=== PATIENT | female | born 1955 | race Caucasian/White ===

== ENCOUNTER → 2017-01-18 | Outpatient (CLI) | payer SELFPAY | END | disposition disaster alternative care site (69) | LOC: GRAD 09:39 | DX: R91.8 Other nonspecific abnormal finding of lung field (principal) ==

== ENCOUNTER → 2017-01-23 | Outpatient (CLI) | payer SELFPAY | END | disposition disaster alternative care site (69) | LOC: GKIC 09:48 | DX: C34.82 Malignant neoplasm of overlapping sites of left bronchus and lung (principal); C34.90 Malignant neoplasm of unspecified part of unspecified bronchus or lung; C78.7 Secondary malignant neoplasm of liver and intrahepatic bile duct; C79.51 Secondary malignant neoplasm of bone; R91.8 Other nonspecific abnormal finding of lung field; R59.0 Localized enlarged lymph nodes; M84.48XD Pathological fracture, other site, subsequent encounter for fracture with routine healing | CPT/HCPCS: A9552 ==

== ENCOUNTER 2017-02-13 13:03 | Emergency (ER) | payer SELFPAY ==
--- NOTE | ~2017-02-13 | ER ---
PATIENT'S NAME: SULMA ESTEVEZ [facility] AGE: 61 Y [address] ROOM: [place] [address] LOCATION: ED ADMIT DATE: 02/13/2017 ER/Outpatient Report DISCHARGE DATE: 02/13/2017 FAMILY PHYSICIAN: Lexii Mercer MD ATTENDING PHYSICIAN: Vickie Simeon Time of arrival: 1303 hours. Time seen: 1303 hours. IDENTIFICATION: A 61-year-old female. CHIEF COMPLAINT: Shortness of breath. HISTORY OF PRESENT ILLNESS: The patient is a 61-year-old female, who was transported from the [facility] where she was receiving radiation therapy to a metastatic lesion in her sacrum. She became short of breath 20 minutes prior to arrival. She has had increasing shortness of breath and then today she had some chest pain in her midsternal, mid lower sternal, and into the left. The patient has no history of coronary artery disease. 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 She has a large sacral lesion and it is getting radiation therapy to that and when that is completed after 10 treatments they will consider that a T11 lesion. ALLERGIES: NO KNOWN DRUG ALLERGIES. CURRENT MEDICATIONS: 1. Mobic 7.5 mg daily. 2. Spencer 5/325 daily. 3. Prilosec 20 mg daily. 4. Docusate 100 mg daily. 5. Tramadol 50 mg two q.i.d. p.r.n. MEDICAL PROBLEMS: 1. Non-small cell carcinoma of the lung with metastasis to bone and liver. 2. Hypertension. 3. COPD. 4. Depression. PRIOR SURGERIES: 1. Hysterectomy. PATIENT'S NAME: SULMA ESTEVEZ [facility] AGE: 61 Y [address] ROOM: [place] [address] LOCATION: ED ADMIT DATE: 02/13/2017 ER/Outpatient Report DISCHARGE DATE: 02/13/2017 FAMILY PHYSICIAN: Lexii Mercer MD ATTENDING PHYSICIAN: Vickie Simeon 2. Hemangioma excision as a child. 3. Bronchoscopy on 01/04/2017 with biopsy. 4. Hysterectomy. 5. Mammogram in 2013. 6. Colonoscopy in 2012. 7. Pap in 2014. SOCIAL HISTORY: The patient was living in [place]. Currently living in [place] with her mother. Tobacco use, 2 packs per day up until this was diagnosed since the age of 19. History of marijuana use in the past and history of alcohol use none currently. FAMILY HISTORY: Father secondary to pancreatic cancer. Mother is living. Sister is living. Two brothers, one with diabetes. Maternal aunt had a history of cancer. REVIEW OF SYSTEMS: All systems were reviewed and negative other than what is noted in the HPI. Specifically, the patient does have a history of depression but currently depression is stable and no suicidal ideation. PHYSICAL EXAMINATION: VITAL SIGNS: Blood pressure 149/72, weight 66.8 kg. Pulse 96, respirations 18, temperature 97.6, and saturations 100%. GENERAL: A 61-year-old female in no acute distress. HEENT: Head: Normocephalic and atraumatic. Ears: TMs translucent both ears. Nose: Mucosa pink, no lesions. Mouth: No lesions. Pharynx benign. NECK: Supple. No lymphadenopathy. LUNGS: Diminished on the left side. No rhonchi, wheezes, or rales. HEART: Regular rate and rhythm. ABDOMEN: Soft, nondistended, and nontender. SKIN: [place], warm, and dry. No lesions or rashes noted. EXTREMITIES: No lower extremity edema. CHEST: She has tenderness to the left side of her chest, which reproduces her pain. LABORATORY DATA: Hemoglobin 11.8, hematocrit 35.6, platelets 248, white count 5.3. Differential is normal. INR 0.96. Troponin I less than 0.040. CPK 29, CK-MB less than 0.5. Sodium 129 and sodium was 131 on 02/09, potassium 4.0, chloride 91, CO2 of 27, BUN 8, creatinine 0.5, blood sugar 71 albumin low at 2.9. Magnesium 1.8. Two-hour cardiac enzymes; CPK 25 and CK-MB less than 0.5. Troponin I less than 0.040. EKG at 1508 hours showed normal sinus PATIENT'S NAME: SULMA ESTEVEZ [facility] AGE: 61 Y [address] ROOM: [place] [address] LOCATION: [facility] ADMIT DATE: 02/13/2017 ER/Outpatient Report DISCHARGE DATE: 02/13/2017 FAMILY PHYSICIAN: Lexii Mercer MD ATTENDING PHYSICIAN: Vickie Simeon rhythm at 97 beats per minute. No acute ST elevation or depression. EKG at 1317 hours normal sinus rhythm at 96 beats per minute. No acute ST elevation or depression. Two-view chest x-ray,, left suprahilar mass. No other acute findings noted on chest x-ray. PE protocol CT: No CT findings of PE and large left hilar and suprahilar mass with invasion into the adjacent mediastinum, additional small pulmonary nodules in both lungs, which could reflect additional neoplastic foci, extensive neoplastic bone involvement at the thorax, low-attenuation liver lesion consistent with neoplastic liver involvement and disseminated changes in the lung parenchyma scarring and fibrosis, predominantly at the lung bases. IMPRESSION: 1. Shortness of breath. No evidence of pulmonary embolism. No pneumonia. O2 sats have been stable throughout her stay here in the emergency room and she is feeling a little bit better at this time. 2. Chest pain and chest wall pain. Serial EKG and enzymes are negative. No history of coronary artery disease. 3. Non-small cell lung cancer. 4. Bony metastasis undergoing radiation therapy. The patient received 324 mg aspirin on arrival, Zofran for nausea 4 mg, and morphine 2 mg IV for pain. Her pain improved from a 6 to 3. She will be discharged home to continue her current medications. She has Ultram for pain and follow up with Dr. Brooks in 1 to 4 days. Keep her appointment with radiation therapy tomorrow. VICKIE SIMEON MD CAR/modl /[id number] d: 02/14/17 0757 t: 02/14/17 1029, OUTPATIENT REPORT
[2017-02-13 13:38] LABS: BASOPHIL % 0.2 %; EOSINOPHIL % 0.6 %; HEMATOCRIT 35.6 % (33.0-46.0); HEMOGLOBIN 11.8 g/dL (10.0-15.0); IMMATURE GRANULOCYTE % 0.4 %; LYMPHOCYTE # 0.8 K/uL (0.8-4.0); MCH 31.4 pg (27.0-34.0); MCHC 33.1 gm/dL (32.0-36.5); MCV 94.7 fl (83.0-98.0); MONOCYTE # 0.7 K/uL (0.0-1.0); MONOCYTE % 13.9 %; MPV 9.2 fl (9.4-12.4); NEUTROPHIL # (ANC) 3.7 K/uL (1.8-7.8); NEUTROPHIL % 69.9 %; NRBC % 0 /100WBC (0-0.00); RBC 3.76 M/uL (3.50-5.50); RDW-CV 13.2 % (11.9-14.6); WBC 5.3 K/uL (4.0-11.0)
[2017-02-13 13:42] LABS: PLATELET COUNT 248 K/uL (150-450)
[2017-02-13 13:50] LABS: INR - (THERAPEUTIC) 0.96 (0.92-1.07); PROTIME 10.1 SECONDS (9.8-11.4); PTT 32 SECONDS (25-32)
[2017-02-13 14:00] LABS: ALBUMIN 2.9 gm/dL (3.5-5.0); ALK PHOS 147 IU/L (33-138); ALT 10 IU/L (12-78); AST 11 IU/L (10-40); BLOOD UREA NITROGEN 8 mg/dL (6-24); CHLORIDE 91 mMol/L (96-110); CO2 27 mMol/L (22-32); CPK 29 IU/L (21-215); CREATININE 0.5 mg/dL (0.5-1.1); ESTIMATED GFR (MDRD EQUATION) > 60; MAGNESIUM 1.8 mg/dL (1.8-2.6); SODIUM 129 mMol/L (135-145); TOTAL PROTEIN 7.3 g/dL (6.0-8.4)
[2017-02-13 14:08] LABS: TOTAL BILIRUBIN 0.8 mg/dL (0.0-1.5)
[2017-02-13 15:36] LABS: CPK 25 IU/L (21-215)
== END 2017-02-13 15:54 | disposition disaster alternative care site (69) ==
LOC: GMED 13:03
PROVIDERS: Family Medicine
DX: R06.02 Shortness of breath (principal); R07.89 Other chest pain; C34.90 Malignant neoplasm of unspecified part of unspecified bronchus or lung; C79.51 Secondary malignant neoplasm of bone; J44.9 Chronic obstructive pulmonary disease, unspecified; I10 Essential (primary) hypertension; F32.9 Major depressive disorder, single episode, unspecified; Z90.710 Acquired absence of both cervix and uterus
CPT/HCPCS: J2270; J2405

== ENCOUNTER → 2017-02-13 | Outpatient (CLI) | payer SELFPAY | END | disposition disaster alternative care site (69) | LOC: GAMB 12:47 | DX: R06.02 Shortness of breath (principal); Z85.118 Personal history of other malignant neoplasm of bronchus and lung | CPT/HCPCS: A0422; A0425; A0427 ==

== ENCOUNTER → 2017-02-13 | Outpatient (CLI) | payer SELFPAY | END | disposition disaster alternative care site (69) | LOC: GRAD 11:45 | DX: C34.12 Malignant neoplasm of upper lobe, left bronchus or lung (principal); C79.51 Secondary malignant neoplasm of bone; C78.7 Secondary malignant neoplasm of liver and intrahepatic bile duct; C78.1 Secondary malignant neoplasm of mediastinum; R91.8 Other nonspecific abnormal finding of lung field ==

== ENCOUNTER → 2017-02-25 | Outpatient (CLI) | payer SELFPAY | END | disposition disaster alternative care site (69) | LOC: GAMB 20:03 | DX: M54.5 Low back pain (principal); R11.0 Nausea; Z85.118 Personal history of other malignant neoplasm of bronchus and lung; Z85.89 Personal history of malignant neoplasm of other organs and systems; Z92.3 Personal history of irradiation; Z79.1 Long term (current) use of non-steroidal anti-inflammatories (NSAID); Z79.899 Other long term (current) drug therapy | CPT/HCPCS: A0425; A0427; J2405; J3010 ==

== ENCOUNTER → 2017-03-17 | Outpatient (CLI) | payer SELFPAY | END | disposition disaster alternative care site (69) | LOC: GAMB 06:20 | DX: S89.90XA Unspecified injury of unspecified lower leg, initial encounter (principal); M79.89 Other specified soft tissue disorders; R22.9 Localized swelling, mass and lump, unspecified; Z79.891 Long term (current) use of opiate analgesic; Z79.82 Long term (current) use of aspirin; Z79.1 Long term (current) use of non-steroidal anti-inflammatories (NSAID); Z79.2 Long term (current) use of antibiotics | CPT/HCPCS: A0425; A0429 ==